=== PATIENT | female | born 1950 | race Caucasian/White ===

== ENCOUNTER 2018-01-28 09:37 | Outpatient (CLI) | payer OTHER ==
[~2018-01-28 09:37] MED LIST: BUDE1AER IH; DEXL30EC PO; DILT-35 PO; LEVO0.0712 PO; LORA-476 PO; MECL-272 PO; MONT10TA35 PO; OMEG1SGL6 PO; TRAM50TA1 PO; [UNRECOGNIZED DRUG - CODE] PO
== END 2018-01-28 21:20 | disposition home or self-care (01) ==
LOC: MLB 09:37
DX: M26.609 Unspecified temporomandibular joint disorder, unspecified side (principal); I10 Essential (primary) hypertension; J45.909 Unspecified asthma, uncomplicated
CPT/HCPCS: 36415; 82565; 84520